=== PATIENT | male | born 1990 | race African-American/Black ===

== ENCOUNTER 2019-10-27 16:26 | Emergency (ER) | payer OTHER, SELFPAY ==
--- NOTE | 2019-10-27 16:30 | ED.GENADULT ---
HPI - General Adult General Chief complaint: Upper Respiratory Infection Stated complaint: Congestion Time Seen by Provider: 10/27/19 16:30 Source: patient Mode of arrival: ambulatory Limitations: no limitations History of Present Illness HPI narrative: 29-year-old male patient presents to the [facility] with complaints of cold symptoms. Patient states he has been having some congestion and sore throat symptoms on and off again for the past month however he states that his symptoms returned abruptly last night. Patient states he also started running fevers as high as 101. Patient states that he has noticed that he has become winded more often just doing small tasks like going up the stairs. Patient also complaining of his left ear starting to be painful. Denies any coughing. Denies any chest pain at this time. Patient states that he did get a flu shot this year. Patient states he has had a lot of congestion. Patient states he has been taking [id number] TheraFlu and Mucinex for his symptoms. Related Data Allergies Allergy/AdvReac Type Severity Reaction Status Date / Time No Known Allergies Allergy Verified 10/27/19 16:31 Review of Systems Review of Systems: Narrative: CONSTITUTIONAL: Positive subjective fever, body aches, chills, and sweats. EYES: Denies visual changes, redness, or discharge. ENT: Positive rhinorrhea, congestion, sore throat, and left otalgia. CARDIOVASCULAR: Denies chest pain, palpitations, or edema. RESPIRATORY: Denies cough or dyspnea. GASTROINTESTINAL: Denies abdominal pain, nausea, vomiting, or diarrhea. GENITOURINARY: Denies dysuria or hematuria. SKIN: Denies rash or itching. MUSCULOSKELETAL: Denies back pain, joint pain, or myalgia. NEUROLOGIC: Denies headache, numbness, or weakness. PSYCHIATRIC: Denies anxiety or depression. PMFSH Comments At the time of my signature I agree with nursing past medical history, surgical, social, and family history. There is no relevant family history pertinent to the presenting complaint. Exam Narrative: Exam Narrative: GENERAL: ill-appearing, well-nourished, and in no acute distress. HEAD: Normocephalic, atraumatic. No tenderness noted to frontal maxillary sinuses on palpation. EYES: PERRLA and EOMI. ENT: Nares with erythema and edema noted bilaterally with the right nare swollen shut, no rhinorrhea or epistaxis. Mucous membranes moist. Posterior pharynx with 3+ tonsil enlargement, no exudates or lesions present. Left TM does appear erythemic. There is some fluid noted behind the right TM. NECK: Supple. No lymphadenopathy CHEST: Clear to auscultation. No respiratory distress. HEART: Regular rate and rhythm. No murmur heard. Normal peripheral pulses. ABDOMEN: Soft, nontender, nondistended, normal active bowel sounds. EXTREMITIES: Normal range of motion. No edema. SKIN: Warm, dry, no rash. NEURO: No focal deficits. Alert and oriented x3. Course Reevaluation(s) Reevaluation #1: Notify patient that he is negative today for influenza and strep throat as well as mono. Discussed with patient that he does look like he is got the beginnings of a left-sided ear infection and I am concerned that this also might be a sinus infection that is causing all of his symptoms therefore working to discharge him home today with an antibiotic to treat not only the ear infection but also a sinusitis infection. Discussed with patient also can give him an oral steroid, daily antihistamine and a nasal steroid for symptoms. Discussed with patient if he has worsening symptoms such as chest pain shortness of breath that he would need to go the ER for further evaluation and treatment. Patient verbalized understanding denies any other questions or concerns at this time. Date: 10/27/19 Time: 17:23 Vital Signs Vital signs: Vital Signs Temperature 38.6 C H 10/27/19 16:40 Pulse Rate 96 10/27/19 16:40 Respiratory Rate 18 10/27/19 16:40 Blood Pressure 145/73 H 10/27/19 16:40 Pul
[2019-10-27 16:40] VITALS: BP 145/73; PULSE 96; RESP 18; TEMP 38.6; O2SAT 98
== END 2019-10-27 17:25 | disposition home or self-care (01) ==
PROVIDERS: Emergency Provider Nurse Practitioner Family
DX: H66.92 Otitis media, unspecified, left ear (principal); J00 Acute nasopharyngitis [common cold]; J01.90 Acute sinusitis, unspecified; J01.01 Acute recurrent maxillary sinusitis; J03.90 Acute tonsillitis, unspecified
CPT/HCPCS: 86308; 87081; 87804; 87880; 99213; G0463

== ENCOUNTER 2019-11-23 03:52 | Observation (INO) | payer OTHER, SELFPAY ==
[2019-11-23] VITALS (7 sets, daily range): BP systolic 112–160; BP diastolic 63–81; PULSE 69–81; RESP 12–18; TEMP 36.6; O2SAT 97–100; BMI 49.9
--- NOTE | 2019-11-23 | ECHO_ITS ---
Patient Info Name: Kailash Nava Age: 29 years : 1990 Gender: Male Ht: 71 in Wt: 350 lbs BSA: 2.90 m2 HR: 69 bpm BP: 160 / 90 mmHg Heart Rhythm: Sinus Rhythm Technical Quality: Good Exam Date: 11/23/2019 8:45 AM Exam Location: [facility] Patient Status: Inpatient Admit Date: 11/23/2019 Staff Ordering Physician: Angélica Gordon APRN Assistant Women'S Soccer Coach: Cas Tejada, ADDIE, RT Attending Provider: Heladio Whitfield MD Exam Type: CA echo dop color flow w con Study Info Complete two-dimensional, color flow and Doppler transthoracic echocardiogram is performed with contrast to opacify the left ventrical and to improve the deliniation of the left ventrical endocarial boarders. Summary 1. Left ventricular systolic function is normal, estimated at 55-60%. 2. There is moderately increased left ventricular wall thickness. 3. The left ventricular diastolic function is normal. 4. The aortic valve is probable trileaflet, although not all leaflets well visualized. 5. There is no aortic valve stenosis. 6. There is no aortic valve regurgitation. 7. There is trace mitral valve regurgitation. 8. There is trace tricuspid valve regurgitation. 9. Unable to estimate PA systolic pressure due to poor spectral resolution of tricuspid regurgitant jet velocity. Left Ventricle Left ventricular chamber dimension is normal. Left ventricular systolic function is normal, estimated at 55-60%. There is moderately increased left ventricular wall thickness. Left ventricular septal wall motion is normal. The left ventricular diastolic function is normal. Right Ventricle Right ventricular chamber dimension is normal. Right ventricular systolic function is normal. Left Atria Left atrial chamber dimension is normal. Right Atria Right atrial chamber dimension is normal. Aortic Valve The aortic valve is probable trileaflet, although not all leaflets well visualized. There is no aortic valve stenosis. There is no aortic valve regurgitation. Pulmonic Valve The pulmonic valve is not well visualized. Mitral Valve The mitral valve has normal leaflets. There is trace mitral valve regurgitation. Tricuspid Valve The tricuspid valve leaflets are normal. There is trace tricuspid valve regurgitation. Unable to estimate PA systolic pressure due to poor spectral resolution of tricuspid regurgitant jet velocity. Pericardium/Pleural The pericardium appears normal. There is no pericardial effusion. Aorta The aortic root size at the sinus of Valsalva is normal. The prox ascending aorta size is normal. Left Ventricular Outflow Tract Name Value Normal LVOT 2D LVOT Diameter 2.48 cm LVOT Doppler LVOT Peak Gradient 4 mmHg LVOT Mean Gradient 2 mmHg LVOT VTI 18.82 cm LVOT VTI/AV VTI Ratio 1.04 LVOT Stroke Volume 90.84 ml LVOT CO 7.20 l/min LVOT CI 2.48 L/min/m2 Pulmonic Valve
--- NOTE | ~2019-11-23 | XR_ITS ---
EXAMINATION: XR chest 2V DATE: 11/23/2019 04:24 INDICATION: Chest pain radiating down left arm TECHNIQUE: PA and lateral views of the chest were obtained. COMPARISON: Chest radiograph dated 12/24/2016 FINDINGS: The lungs remain clear with no focal airspace opacities, pulmonary edema, pleural effusion or pneumot horax. Cardiomegaly with suggestion of possible left atrial enlargement. Visualized bones and soft ti ssues are unremarkable. IMPRESSION: 1. Cardiomegaly with suggestion of possible left atrial enlargement. Reviewed, dictated and finalized at location A. EDGER
--- NOTE | 2019-11-23 03:59 | ECG_ITS ---
Measurements Intervals [place] Rate: 79 P: 55 PA: 196 QRS: 1 QRSD: 97 T: -29 QT: 344 QTc: 395 Interpretive Statements SINUS RHYTHM DELAYED PRECORDIAL R/S TRANSITION BORDERLINE T WAVE ABNORMALITY- INF/LAT LEADS BASELINE ARTIFACT- I, III, AVR, AVL, AVF BORDERLINE ECG Electronically Signed On 11-23-2019 7:03:52 CLOSING SUPERVISOR by Sae Decker D.O.
--- NOTE | 2019-11-23 04:04 | ED.CHESTPAIN ---
HPI - Chest Pain General Chief Complaint: Chest Pain Stated Complaint: cp Time Seen by Provider: 11/23/19 03:56 Source: RN notes reviewed History of Present Illness HPI narrative: Patient presents emergency department from home for chest pain. Patient states pain began approximate 1 hour prior to arrival. Patient states he was laying in bed when pain began. Pain is located left side of the chest and goes into the left arm. Described as sharp and stabbing in nature. States associated shortness of breath. Denies any fevers or chills abdominal pain nausea vomiting or any other symptoms. Denies any previous cardiac history. States family history of father having a heart attack at age 32 Related Data Allergies Allergy/AdvReac Type Severity Reaction Status Date / Time No Known Allergies Allergy Verified 10/27/19 16:31 Review of Systems Review of Systems: Narrative: Gen.: Denies fevers or chills Eyes: Denies eye pain or visual change ENT: Denies congestion Respiratory: Reports shortness of breath CV: Reports chest pain GI: Denies abdominal pain nausea, emesis or diarrhea denies burning, urgency, frequency or hematuria Musculoskeletal: Denies back pain or muscle pain Neuro: Denies numbness, tingling, weakness or focal weakness Skin: Denies rash Except as documented, all other systems reviewed and negative PMFSH Past Medical History Medical History (Updated 11/23/19 @ 05:36 by Alex Garnett DO) Patient denies significant medical history Social History Social History (Updated 11/23/19 @ 04:05 by Alex Garnett DO) Smoking status: Never smoker Exam Narrative: Exam Narrative: APPEARANCE: No acute distress, nontoxic, resting in bed EYES: EOMI HEENT: Normocephalic, atraumatic, OMM RESPIRATORY: No respiratory distress Clear to auscultation bilaterally with no rhonchi wheezing or rales. CARDIOVASCULAR: Regular rate and rhythm without murmurs rubs or gallops. Chest: Tender palpation over left anterior chest wall ABDOMINAL: Soft, nontender, nondistended, no rebound or guarding MUSCULOSKELETAl: Moves all extremities. No clubbing, cyanosis or edema. NEURO: Awake and alert. Following commands, speech normal, no focal deficits SKIN:: Warm, dry. No rashes lesions or abrasions PSYCHIATRIC: Normal affect/mood, Course Course Emergency Course: Patient states pain is resolved at this time Discussed with Dr. Whitfield presentation work-up. Agrees with admission the chest pain center at this time Discussed with patient and family results of workup and diagnosis. Discussed need for admission. Patient and family understand and agree to current treatment plan Vital Signs Vital signs: Vital Signs Temperature 97.8 F 11/23/19 03:56 Pulse Rate 81 11/23/19 03:56 Respiratory Rate 17 11/23/19 03:56 Blood Pressure 137/80 11/23/19 03:56 Pulse Oximetry 97 11/23/19 03:56 Temperature 97.8 F 11/23/19 03:56 Pulse Rate 81 11/23/19 03:56 Respiratory Rate 17 11/23/19 03:56 Blood Pressure 137/80 11/23/19 03:56 Pulse Oximetry 97 11/23/19 03:56 MDM - Chest Pain Lab Data Result diagrams: 11/23/19 04:03 11/23/19 04:03 Labs: Lab Results 11/23/19 11/23/19 11/23/19 Range/Units 04:03 04:03 04:03 WBC 10.1 H (4.5-10.0) K/mm3 RBC 4.64 (4.6-6.20) M/mm3 Hgb 13.6 L (14.0-18.0) g/dL Hct 42.4 (42.0-52.0) % MCV 91.4 (80-100) fl MCH 29.3 (26-34) pg MCHC 32.1 (32-36) g/dl RDW 12.8 (11.5-14.5) % Plt Count 347 (150-375) k/mm3 MPV 10.9 H (7.4-10.4) fl Immature Gran % (Auto) 0.3 (0-0.5) % Neut % (Auto) 54.7 (45.5-73.1) % Lymph % (Auto) 31.4 (18.3-44.2) % [place] % (Auto) 10.0 H (2.6-8.5) % Eos % (Auto) 2.9 (0-4.4) % Baso % (Auto) 0.7 (0.2-1.2) % Lymph # (Auto) 3.18 (0.9-3.2) K/mm3 [place] # (Auto) 1.0 H (0.1-0.6) K/mm3 Eos # (Auto) 0.3 (0-0.3) K/mm3 Baso # (Auto) 0.1 (0.0-0.1)
[2019-11-23] MEDS: ASPIRIN 81 MG CHEWABLE TABLET 324 MG PO (04:06)
[2019-11-23 04:10] LABS: Basophils Absolute Auto 0.1 K/mm3 (0.0-0.1); Basophils Percent Auto 0.7 % (0.2-1.2); Eosinophils Absolute Auto 0.3 K/mm3 (0-0.3); Eosinophils Percent Auto 2.9 % (0-4.4); Hematocrit 42.4 % (42.0-52.0); Hemoglobin 13.6 g/dL (14.0-18.0); Immature Granulocyte Absolute 0.03 K/mm3 (0.00-0.031); Immature Granulocyte Percent A 0.3 % (0-0.5); Lymphocytes Absolute Auto 3.18 K/mm3 (0.9-3.2); Lymphocytes Percent Auto 31.4 % (18.3-44.2); Mean Corpuscular HGB Conc 32.1 g/dl (32-36); Mean Corpuscular Hemoglobin 29.3 pg (26-34); Mean Corpuscular Volume 91.4 fl (80-100); Mean Platelet Volume 10.9 fl (7.4-10.4); Neutrophils Absolute Auto 5.6 K/mm3 (1.3-6.7); Neutrophils Percent Auto 54.7 % (45.5-73.1); Platelet Count Result 347 k/mm3 (150-375); Red Blood Count 4.64 M/mm3 (4.6-6.20); Red Cell Distribution Width 12.8 % (11.5-14.5); White Blood Count 10.1 K/mm3 (4.5-10.0)
[2019-11-23 04:20] LABS: Prothrombin Time 12.8 Seconds (11.1-14.7)
[2019-11-23 04:21] LABS: Partial Thromboplastin Time 30.3 SECONDS (22.3-36.8)
[2019-11-23 04:23] LABS: Alanine Aminotransferase 29 U/L (4-50); Albumin Level 4.6 g/dL (3.5-5.1); Alkaline Phosphatase 77 U/L (38-126); Aspartate Amino Transferase 33 U/L (17-59); Bilirubin,Total 0.3 mg/dL (0.2-1.3); Blood Urea Nitrogen 16 mg/dL (9-20); Calcium 9.2 mg/dL (8.4-10.2); Carbon Dioxide 28 mmol/L (22-30); Chloride 104 mmol/L (98-107); Estimated CRCL calculation 134 ml/min; Estimated Glomerular Filt Rate > 60; Glucose 102 mg/dL (75-110); Lipase 41 U/L (23-300); Potassium 4.3 mmol/L (3.4-5.0); Sodium 139 mmol/L (137-145)
[2019-11-23 04:26] LABS: D Dimer 0.27 ug/mL (<0.48)
[2019-11-23 04:34] LABS: Troponin I < 0.012 ng/mL (0.000-0.034)
[2019-11-23] MEDS: KETOROLAC 30 MG/ML VIAL (*BKC) IV PUSH (05:00)
--- NOTE | 2019-11-23 05:53 | PC.NURSE ---
Called lab to add on Lipid Panel
[2019-11-23 06:02] LABS: Cholesterol 170 mg/dL (0-200); HDL Direct 38 mg/dL; Triglycerides 122 mg/dL (<150)
[2019-11-23 06:12] LABS: LDL Cholesterol Direct 100 mg/dL
--- NOTE | 2019-11-23 07:25 | ECG_ITS ---
Measurements Intervals [place] Rate: 84 P: 62 RI: 194 QRS: 1 QRSD: 94 T: -33 QT: 367 QTc: 435 Interpretive Statements SINUS RHYTHM MINIMAL Q WAVES- LATERAL LEADS ST-T WAVE ABNORMALITY IN INFEROR LEADS- CONSIDER ISCHEMIA BASELINE ARTIFACT- I, II, III, AVL, AVF ABNORMAL ECG Electronically Signed On 11-23-2019 11:00:21 SERVICE LINE BUS CLEANER by Sae Decker D.O.
[2019-11-23 07:51] LABS: Troponin I < 0.012 ng/mL (0.000-0.034)
--- NOTE | 2019-11-23 08:01 | PC.NURSE ---
0645-pt presents to the [facility] for CP. Pain down to 1/10, states this is more of a discomfort at this point. Will continue to monitor.
--- NOTE | 2019-11-23 08:03 | PC.NURSE ---
0715-pt found to hacve some EKG changes in leads V4, V5, V6. No pain and second trop is negative. RESIDENTIAL MORTGAGE MANAGER informed and will see the pt. Will continue to monitor.
--- NOTE | 2019-11-23 08:33 | ECG_ITS ---
Measurements Intervals [place] Rate: 64 P: 48 [place]: 223 QRS: -4 QRSD: 111 T: -54 QT: 393 QTc: 407 Interpretive Statements SINUS RHYTHM WITH FIRST DEGREE AV BLOCK INTRAVENTRICULAR CONDUCTION DELAY DELAYED PRECORDIAL R/S TRANSITION MINIMAL Q WAVES- LATERAL LEADS ST-T WAVE ABNORMALITY IN ANTEROLAT/INF LEADS- CONSIDER ISCHEMIA ABNORMAL ECG Electronically Signed On 11-23-2019 8:00:43 PATTERN DEVELOPER by Sae Decker D.O.
[2019-11-23] MEDS: PERFLUTREN LIPID MICROSPHERES 1.5 ML VIAL DILUTED TO 10 ML TOTAL VOLUME (09:42)
--- NOTE | 2019-11-23 09:55 | PM.IMHP ---
H&P: HPI History of Present Illness Chief complaint: chest pain Narrative: Cardiology short-stay H&P summary: Chief complaint: Woke up with chest pain that goes in my left shoulder and arm Kailash Nava is a 29 year old male with a past medical history significant for obstructive sleep apnea compliant with CPAP, obesity otherwise in his usual state of health states he went to bed last night and awoke this morning with chest pain described as a tightness sensation left upper chest up into the left shoulder occasionally radiating into his left arm with numbness. He notes no associated shortness of breath, diaphoresis, palpitations, nausea, vomiting, progressive fatigue, edema, orthopnea or PND. No exacerbation with activity. Patient states he has been feeling well otherwise with no limitations or declining exercise tolerance. He denies any significant symptoms currently. He is without for myocardial infarction with enzymes are negative x2. His EKG was abnormal in the emergency department with T-wave inversions but largely unchanged compared to EKG compared to 2017. He has no prior known history of CHF, CAD or other cardiovascular problem. Patient reports his father at age 31 had aortic valve problem require replacement and is not sure if he had heart attack or coronary disease but has not had any subsequent issues and reportedly is doing well. Patient reports sinus congestion 3 weeks ago resolving with antibiotics and supportive care. 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 He has no other complaints at this time. Review of Systems Review of Systems: All systems reviewed & are unremarkable except as noted in HPI and below Constitutional: Constitutional: Reports as per HPI and Reports no additional constitutional complaints Eyes: Eyes: Reports as per HPI and Reports no additional eye complaints ENT: Reports system reviewed and no additional complaints, except as documented and Reports as per HPI Cardiovascular: Cardiovascular: Reports as per HPI, Reports no additional cardiovascular complaints and Reports chest pain Respiratory: Respiratory: Reports as per HPI, Reports no additional respiratory complaints, Denies dyspnea, Denies dyspnea on exertion and Denies wheezing Gastrointestinal: Gastrointestinal: Reports as per HPI, Reports no additional gastrointestinal complaints and Denies abdominal pain Genitourinary: Genitourinary: Reports no additional male genitourinary complaints and Reports as per HPI Musculoskeletal: Musculoskeletal: Reports no additional musculoskeletal complaints, Reports as per HPI, Denies back pain, Denies arthralgias and Denies neck pain Integumentary/Breasts: Skin/Breast: Reports system reviewed and no additional complaints, except as docu and Reports as per HPI Neurologic: Reports system reviewed and no additional complaints, except as documented, Reports as per HPI and Denies headache(s) Psychiatric: Psychiatric: Reports no additional psychiatric complaints and Reports as per HPI Endocrine: Endocrine: Reports no additional endocrine complaints, Reports as per HPI, Denies excessive sweating and Denies fatigue Hematologic/Lymphatic: Hematologic/Lymphatic: Reports no additional hematologic/lymphatic complaints, Reports as per HPI, Denies easy bleeding and Denies easy bruising Allergic/Immunologic: Allergic/Immunologic: Reports no additional allergic/immunologic complaints, Reports as per HPI and Denies GI upset with certain foods PMFSH Past Medical History Medical History Morbid obesity with BMI of 50.0-59.9, adult CHAY on CPAP Patient denies significant medical history Family History Family History Father Acute myocardial infa
[2019-11-23 10:34] LABS: Troponin I < 0.012 ng/mL (0.000-0.034)
--- NOTE | 2019-11-23 11:33 | ECG_ITS ---
Measurements Intervals [place] Rate: 80 P: 55 [place]: 207 QRS: -4 QRSD: 108 T: -34 QT: 363 QTc: 420 Interpretive Statements SINUS RHYTHM DELAYED PRECORDIAL R/S TRANSITION ST-T WAVE ABNORMALITY IN ANTEROLAT/INF LEADS- CONSIDER ISCHEMIA BASELINE ARTIFACT- I, II, AVR, AVL, AVF ABNORMAL ECG Electronically Signed On 11-23-2019 10:16:57 DECK OFFICER by Sae Decker D.O.
--- NOTE | 2019-11-23 12:44 | PC.NURSE ---
1230-pt given D/C orders and instructions. Questions answered and verbalized understanding. Ambulated per request to waiting vehicle. No distress noted or verbalized at time of departure.
== END 2019-11-23 12:44 | disposition home or self-care (01) ==
LOC: ANHED 05:36 → ANHCPC 05:59
PROVIDERS: Admitting Provider Specialist; Emergency Provider Emergency Medicine; Visit Provider Specialist
DX: R07.9 Chest pain, unspecified (principal); R03.0 Elevated blood-pressure reading, without diagnosis of hypertension; R94.31 Abnormal electrocardiogram [ECG] [EKG]; G47.33 Obstructive sleep apnea (adult) (pediatric); Z99.89 Dependence on other enabling machines and devices; E66.01 Morbid (severe) obesity due to excess calories; Z68.43 Body mass index [BMI] 50.0-59.9, adult
CPT/HCPCS: 36415; 71046; 80048; 80061; 80076; 83690; 84484; 85025; 85380; 85610; 85730; 93005; 93306; 96374; 96375; 99285; A9270; C8929; G0378; G0379; J1885; Q9957

== ENCOUNTER 2022-12-11 14:24 | Emergency (ER) | payer OTHER, SELFPAY ==
--- NOTE | ~2022-12-11 | XR_ITS ---
EXAMINATION: XR chest 2V DATE: 12/11/2022 14:55 INDICATION: Chest pain TECHNIQUE: PA and lateral views of the chest are obtained. COMPARISON: 11/23/2019 FINDINGS: The lungs are free of acute opacities. No pleural effusion or pneumothorax. The cardiomedia stinal silhouette is normal. The visualized bones and soft tissues are unremarkable. IMPRESSION: 1. No acute cardiopulmonary abnormality. Reviewed, dictated and finalized at location L.
--- NOTE | 2022-12-11 14:26 | ECG_ITS ---
Measurements Intervals [place] Rate: 85 P: 60 [place]: 198 QRS: -19 QRSD: 93 T: 2 QT: 358 QTc: 426 Interpretive Statements SINUS RHYTHM DELAYED PRECORDIAL R/S TRANSITION NONSPECIFIC T-WAVE ABNORMALITY- INFERIOR LEADS BORDERLINE ECG COMPARED TO ECG 11/23/2019 10:09:56 NO SIGNIFICANT CHANGES Electronically Signed On 12-11-2022 14:35:36 CDT by Sae Decker D.O.
[2022-12-11 14:44] VITALS: BP 166/82; PULSE 84; RESP 18; TEMP 37.2; O2SAT 100
[2022-12-11] MEDS: ASPIRIN 81 MG CHEWABLE TABLET 324 MG PO (15:49)
[2022-12-11] MEDS: BELLADONNA ALK/PHENOB ELIX 10 ML, MAG HYDROX/ALUMINUM HYD/SIMETH 30 ML, LIDOCAINE HCL 2... PO (15:50)
--- NOTE | 2022-12-11 16:33 | ED.GENADULT ---
HPI - General Adult General Chief complaint: Chest Pain Stated complaint: chest pain/sob Time Seen by Provider: 12/11/22 15:18 History of Present Illness HPI narrative: Patient is a 32-year-old male who presents ER with chest pain. Occurred about 2:00 in the afternoon. Aching central chest. Has history of acid reflux that feels similar. Unfortunately at this time he had some shortness of breath which is atypical. Shortness of breath has resolved and he now is getting intermittent chest discomfort. No fevers or chills or sweats. No exertional chest discomfort or shortness of breath. He has no nausea or vomiting. No diaphoresis. Reports cardiac catheterization 2020 that was normal. There is no record of this in our chart. Related Data Allergies Allergy/AdvReac Type Severity Reaction Status Date / Time No Known Allergies Allergy Verified 12/11/22 15:27 Review of Systems Review of Systems: All systems reviewed & are unremarkable except as noted in HPI and below Constitutional: Constitutional: Denies chills, Denies fatigue and Denies fever(s) ENT: Denies nasal congestion and Denies sore throat Cardiovascular: Cardiovascular: Reports chest pain and Denies radiating jaw, neck or arm pain Respiratory: Respiratory: Denies cough, Reports dyspnea and Denies wheezing Gastrointestinal: Gastrointestinal: Denies abdominal pain, Reports heartburn, Denies nausea and Denies vomiting PMFSH Past Medical History Medical History (Updated 12/11/22 @ 18:40 by Jose Nam MD) Morbid obesity with BMI of 50.0-59.9, adult CHAY on CPAP Patient denies significant medical history Family History Family History (Updated 11/23/19 @ 10:28 by Sebastian Garcia MD) Father Acute myocardial infarction Patient states had aortic valve surgery unsure about coronary artery disease no issues since his surgery at age 32. Hypertension Social History Social History Smoking status: Smoker, status unknown Tobacco type: cigarettes Second hand tobacco smoke exposure: Yes Gender identity (if verbalized by the patient): Male Exam Narrative: GENERAL: Well-appearing, morbidly obese, and in no acute distress. HEAD: Normocephalic, atraumatic. ENT: Mucous membranes moist. Normal-appearing posterior oropharynx. NECK: Supple. CHEST: Clear to auscultation. No respiratory distress. HEART: Regular rate and rhythm. Normal peripheral pulses. ABDOMEN: Soft, nontender, nondistended. EXTREMITIES: Normal range of motion. No edema. SKIN: Warm, dry, no rash. NEURO: Alert and oriented x3. PSYCH: Normal mood and affect. Course Course Emergency Course: Patient reports he had his cardiac cath at [facility] because they did an ulnar approach. He has no pain at this time. He did not take his GI cocktail. Troponin negative and EKG unchanged. Patient feels comfortable discharge home. Recommend follow-up with his shotweld operator. Vital Signs Vital signs: Vital Signs Temperature 99.0 F 12/11/22 14:44 Pulse Rate 84 12/11/22 14:44 Respiratory Rate 18 12/11/22 14:44 Blood Pressure 166/82 H 12/11/22 14:44 Pulse Oximetry 100 12/11/22 14:44 Oxygen Delivery Room Air 12/11/22 14:44 Temperature 99.0 F 12/11/22 14:44 Pulse Rate 84 12/11/22 14:44 Respiratory Rate 18 12/11/22 14:44 Blood Pressure 166/82 H 12/11/22 14:44 Pulse Oximetry 100 12/11/22 14:44 Oxygen Delivery Room Air 12/11/22 14:44 Medical Decision Making Vital Signs Vital Signs: Vital Signs Temperature 99.0 F 12/11/22 14:44 Pulse Rate 84 12/11/22 14:44 Respiratory Rate 18 12/11/22 14:44 Blood Pressure 166/82 H 12/11/22 14:44 Pulse Oximetry 100 12/11/22 14:44 Oxygen Delivery Room Air 12/11/22 14:44 Temperature 99.0 F 12/11/22 14:44 Pulse Rate 84 12/11/22 14:44 Respiratory Rate 18 12/11/22 14:44 Blood Pressure 166/82 H 12/11/22 14:44 Pul
[2022-12-11 16:47] LABS: Basophils Absolute Auto 0.1 K/mm3 (0.0-0.1); Basophils Percent Auto 0.5 % (0.2-1.2); Eosinophils Absolute Auto 0.2 K/mm3 (0-0.3); Hematocrit 41.6 % (42.0-52.0); Hemoglobin 13.6 g/dL (14.0-18.0); Immature Granulocyte Absolute 0.02 K/mm3 (0.00-0.031); Immature Granulocyte Percent A 0.2 % (0-0.5); Lymphocytes Absolute Auto 1.94 K/mm3 (0.9-3.2); Lymphocytes Percent Auto 16.6 % (18.3-44.2); Mean Corpuscular HGB Conc 32.7 g/dl (32-36); Mean Corpuscular Hemoglobin 30.2 pg (26-34); Mean Corpuscular Volume 92.2 fl (80-100); Mean Platelet Volume 10.4 fl (7.4-10.4); Monocytes Percent Auto 8.1 % (2.6-8.5); Neutrophils Absolute Auto 8.5 K/mm3 (1.3-6.7); Neutrophils Percent Auto 72.6 % (45.5-73.1); Platelet Count Result 341 k/mm3 (150-375); Red Blood Count 4.51 M/mm3 (4.6-6.20); Red Cell Distribution Width 12.9 % (11.5-14.5); White Blood Count 11.7 K/mm3 (4.5-10.0)
[2022-12-11 16:56] LABS: INR 1.1; Prothrombin Time 13.6 Seconds (11.1-14.7)
[2022-12-11 16:57] LABS: Alanine Aminotransferase 36 U/L (6-50); Albumin Level 4.5 g/dL (3.5-5.1); Alkaline Phosphatase 86 U/L (38-126); Anion Gap 7 mmol/L (8-16); Aspartate Amino Transferase 41 U/L (17-59); Bilirubin,Total 0.4 mg/dL (0.2-1.3); Blood Urea Nitrogen 16 mg/dL (9-20); Calcium 8.8 mg/dL (8.4-10.2); Carbon Dioxide 28 mmol/L (22-30); Chloride 105 mmol/L (98-107); Estimated CRCL calculation 144 ml/min; Estimated Glomerular Filt Rate > 60; Glucose 93 mg/dL (65-110); Lipase 47 U/L (23-300); Partial Thromboplastin Time 29.8 SECONDS (22.3-36.8); Potassium 4.3 mmol/L (3.4-5.0); Sodium 140 mmol/L (137-145)
[2022-12-11 17:08] LABS: Troponin I < 0.012 ng/mL (0.000-0.034)
[2022-12-11 18:52] VITALS: BP 161/85; PULSE 76; RESP 18; O2SAT 99
[2022-12-11 19:30] LABS: Troponin I < 0.012 ng/mL (0.000-0.034)
== END 2022-12-11 18:53 | disposition home or self-care (01) ==
PROVIDERS: Emergency Provider Emergency Medicine
DX: K21.9 Gastro-esophageal reflux disease without esophagitis (principal); G47.33 Obstructive sleep apnea (adult) (pediatric); E66.01 Morbid (severe) obesity due to excess calories; Z68.42 Body mass index [BMI] 45.0-49.9, adult
CPT/HCPCS: 36415; 71046; 80053; 83690; 84484; 85025; 85610; 85730; 93005; 99284; A9270

== ENCOUNTER 2024-02-05 00:22 | Emergency (ER) | payer OTHER, SELFPAY ==
[2024-02-05] VITALS (26 sets, daily range): BP systolic 114–152; BP diastolic 62–84; PULSE 59–77; RESP 8–23; TEMP 36.2; O2SAT 94–99
--- NOTE | ~2024-02-05 | XR_ITS ---
Portable chest x-ray Comparison: 12/11/2022 Clinical History: Chest discomfort Findings: Lungs are clear, without focal consolidation or pleural effusion. Cardiomediastinal silho uette is stable. Bones and soft tissues are unremarkable. Impression: Clear lungs. Reviewed, dictated and finalized at location . Impression: Clear lungs.
--- NOTE | 2024-02-05 00:33 | ECG_ITS ---
SEE SCANNED COPY FOR CONFIRMED REPORT MTDD
[2024-02-05] MEDS: ASPIRIN 81 MG CHEWABLE TABLET 324 MG PO (00:34)
[2024-02-05 00:40] LABS: Basophils Absolute Auto 0.1 K/mm3 (0.0-0.1); Basophils Percent Auto 0.9 % (0.2-1.2); Eosinophils Absolute Auto 0.3 K/mm3 (0-0.3); Eosinophils Percent Auto 2.5 % (0-4.4); Hematocrit 39.9 % (42.0-52.0); Hemoglobin 13.2 g/dL (14.0-18.0); Immature Granulocyte Absolute 0.02 K/mm3 (0.00-0.031); Immature Granulocyte Percent A 0.2 % (0-0.5); Lymphocytes Absolute Auto 3.05 K/mm3 (0.9-3.2); Lymphocytes Percent Auto 29.8 % (18.3-44.2); Mean Corpuscular HGB Conc 33.1 g/dl (32-36); Mean Corpuscular Volume 90.7 fl (80-100); Mean Platelet Volume 10.4 fl (7.4-10.4); Monocytes Absolute Auto 0.9 K/mm3 (0.1-0.6); Monocytes Percent Auto 9.2 % (2.6-8.5); Neutrophils Absolute Auto 5.9 K/mm3 (1.3-6.7); Neutrophils Percent Auto 57.4 % (45.5-73.1); Platelet Count Result 320 k/mm3 (150-375); White Blood Count 10.3 K/mm3 (4.5-10.0)
[2024-02-05 00:51] LABS: Alanine Aminotransferase 26 U/L (6-50); Albumin Level 4.4 g/dL (3.5-5.1); Alkaline Phosphatase 68 U/L (38-126); Anion Gap 7 mmol/L (4-12); Aspartate Amino Transferase 31 U/L (17-59); Bilirubin,Total 0.4 mg/dL (0.2-1.3); Blood Urea Nitrogen 18 mg/dL (9-20); Calcium 8.9 mg/dL (8.4-10.2); Carbon Dioxide 25 mmol/L (22-30); Chloride 106 mmol/L (98-107); Estimated CRCL calculation 147 ml/min; Estimated Glomerular Filt Rate > 60; Glucose 96 mg/dL (65-110); Lipase 51 U/L (23-300); Potassium 4.4 mmol/L (3.4-5.0); Sodium 138 mmol/L (137-145)
[2024-02-05 00:57] LABS: Prothrombin Time 13.3 Seconds (11.1-14.7)
[2024-02-05 00:59] LABS: Partial Thromboplastin Time 29.6 Seconds (22.3-36.8)
[2024-02-05 01:02] LABS: Troponin I < 0.012 ng/mL (0.000-0.034)
[2024-02-05] MEDS: PANTOPRAZOLE SODIUM IV 40 MG VIAL IV PUSH (01:35)
[2024-02-05] MEDS: MAG HYDROX/AL HYDROX/SIMETH 30 ML UDC PO (01:35)
--- NOTE | 2024-02-05 03:02 | ED.GENADULT ---
HPI - General Adult General Chief complaint: Chest Pain Stated complaint: chest pain Time Seen by Provider: 02/05/24 00:32 History of Present Illness HPI narrative: this is a 33-year-old male with history of gastritis and dirt GERD presenting with burning chest pain. Patient says that the pain started when he was trying to go to sleep tonight. He has been having for the last several days and recently started another antacid medication. He came to the emergency department because he said the burning is slightly higher in his chest than it was last time and that made him very anxious. He wants to make sure he is not having a heart attack. no fever chills cough radiation to back/jaw/arms, exertional component or diaphoresis. Related Data Home Medications Medication Instructions Recorded Confirmed amlodipine 10 mg-benazepril 20 mg cap 02/05/24 capsule dexlansoprazole 60 mg mg 02/05/24 capsule,biphase delayed release escitalopram oxalate 10 mg tablet mg 02/05/24 famotidine 40 mg tablet mg 02/05/24 Allergies Allergy/AdvReac Type Severity Reaction Status Date / Time No Known Allergies Allergy Verified 02/05/24 00:31 [facility] Past Medical History Medical History (Updated 02/05/24 @ 03:20 by Chidi Brandon MD) Morbid obesity with BMI of 50.0-59.9, adult CHAY on CPAP Patient denies significant medical history Family History Family History Father Acute myocardial infarction Patient states had aortic valve surgery unsure about coronary artery disease no issues since his surgery at age 32. Hypertension Social History Social History Smoking status: Smoker, status unknown Tobacco type: cigarettes Second hand tobacco smoke exposure: Yes Gender identity (if verbalized by the patient): Male Exam Narrative: APPEARANCE: No apparent distress. Head: atraumatic. EYES: EOMI, NOSE: Atraumatic NECK: Trachea midline RESPIRATORY: No increased rate of breathing Clear to auscultation CARDIOVASCULAR: RRR, no peripheral edema ABDOMINAL: Non-distended soft no nontender MUSCULOSKELETAl: No obvious deformities NEURO: Alert. Moving 4/4 extremities SKIN:: Warm, dry. Normal color PSYCHIATRIC: Normal affect Course Vital Signs Vital signs: Vital Signs Temperature 97.1 F L 05/15/24 00:28 Pulse Rate 70 02/05/24 00:28 Respiratory Rate 16 02/05/24 00:28 Blood Pressure 152/84 H 02/05/24 00:28 Pulse Oximetry 97 02/05/24 00:28 Oxygen Delivery Room Air 02/05/24 00:28 Temperature 97.1 F L 02/05/24 00:28 Pulse Rate 70 02/05/24 00:28 Respiratory Rate 16 02/05/24 00:28 Blood Pressure 152/84 H 02/05/24 00:28 Pulse Oximetry 97 02/05/24 00:28 Oxygen Delivery Room Air 02/05/24 00:28 Medical Decision Making MDM Narrative Medical decision making narrative: -Course: 33-year-old male history of gastritis and GERD presenting with burning chest pain. Patient wants make sure he is not having a heart attack. Workup including chest x-ray EKG and 2 troponins were all within normal limits. Patient's symptoms improved with Maalox and Protonix. Pain is noncardiac and due to GERD. Patient discharged with primary care follow-up and return precautions. -DDX includes but is not limited to: Gastritis, GERD, anxiety, ACS -Co-morbidities complicating care: obesity, negative [place]. 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 Trop Undetectable 2 CXR - no acute findings. Independent EKG interpretation: Rhythm [sinus], Rate [67], [place] -[normal], [place] -[normal], QRS [narrow], QTC [normal], ST Segments - [Negative for concerning elevations] Final interpretations: Normal sinus rhythm with stable T-wave i
[2024-02-05 04:43] LABS: Troponin I < 0.012 ng/mL (0.000-0.034)
== END 2024-02-05 05:43 | disposition home or self-care (01) ==
PROVIDERS: Emergency Provider Emergency Medicine
DX: K21.9 Gastro-esophageal reflux disease without esophagitis (principal); E66.01 Morbid (severe) obesity due to excess calories; Z68.43 Body mass index [BMI] 50.0-59.9, adult; G47.33 Obstructive sleep apnea (adult) (pediatric); Z99.89 Dependence on other enabling machines and devices
CPT/HCPCS: 36415; 71045; 80053; 83690; 84484; 85025; 85610; 85730; 93005; 96374; 99284; A9270; C9113